=== PATIENT | male | born 1970 | race Two or more races ===

== ENCOUNTER 2022-12-09 16:16 | Emergency (ER) | payer MEDICAID ==
[~2022-12-09] VITALS: Ht 165.1 cm; Wt 81.8 kg
[2022-12-09] MEDS ORDERED: LISI-892 PO (16:57)
[2022-12-09] MEDS ORDERED: METF-1211 PO (16:57)
[2022-12-09] MEDS ORDERED: ATOR40TA28 PO (16:57)
[2022-12-09] MEDS ORDERED: ACETAMINOPHEN 500 MG TABLET PO ONE (17:15)
[2022-12-09 20:10] VITALS: BP 126/80
== END 2022-12-09 20:22 | disposition home or self-care (01) ==
LOC: EMS 16:18
DX: S40.012A Contusion of left shoulder, initial encounter (principal); E11.9 Type 2 diabetes mellitus without complications; E78.00 Pure hypercholesterolemia, unspecified; I10 Essential (primary) hypertension; V89.2XXA Person injured in unspecified motor-vehicle accident, traffic, initial encounter; Y93.89 Activity, other specified; Y92.89 Other specified places as the place of occurrence of the external cause; Y99.8 Other external cause status
CPT/HCPCS: 72125; 99284; 73030-TC; Z7502; Z7610